=== PATIENT | female | born 1950 | race Caucasian/White ===

== ENCOUNTER 2025-01-15 14:40 | Inpatient (IN) | payer MEDICARE, BC, SELFPAY ==
[2025-01-15 15:02] VITALS: BP 136/82; PULSE 100; RESP 18; TEMP 36.9; O2SAT 99
[2025-01-15 15:03] VITALS: BMI 29.2
--- NOTE | 2025-01-15 15:13 | XR_ITS ---
Examination: CT abdomen and pelvis without contrast. Coronal 3-D reconstructions. Sagittal 2-D reconstructions. Date and time of exam:January 15, 2025 1528 hours INDICATIONS: Abdominal pain beginning one week ago CTDI: vol (mGy): 11.5 DLP: (mGycm): 617 Technique: Axial images of the abdomen have been obtained, 3 mm slice thickness Intravenous contrast material has not been administered. Low dose protocols were performed. One or more of the following dose reduction techniques were used; automated exposure control, adjustment of the mA and/or KV according to patient size, use of iterative reconstruction technique. Findings: No focal liver or splenic lesions Normal thickening involving the stomach with perigastric inflammatory change coronal image 37 No gallstones No pancreatic or adrenal mass No renal or ureteral calculi, no hydronephrosis 4 mm fat-containing umbilical hernia Normal appendix No bowel obstruction No diverticulitis Uterine calcified areas of fibroid degeneration No adnexal mass Intact urinary bladder Advanced degenerative disc disease L2-L3, L4-L5 Total right hip arthroplasty with satisfactory alignment IMPRESSION: Gastritis pattern
--- NOTE | 2025-01-15 15:15 | PD.EDRME ---
Rapid Medical Screening Exam [facility] Arrival date/time: 01/15/25 14:40 74-year-old female with a history of GI bleeds presents to the emergency room with a chief complaint of blood in the stool and abdominal pain. Patient was sent over by Dr. Rivas the environmental sciences professor for a CT scan and blood work. I have greeted and performed a focused initial assessment of this patient. A comprehensive ED assessment and evaluation of the patient, analysis of all test results, and completion of the medical decision making process will be conducted by additional ED providers. Chief Complaint: GI Bleed Vital signs: Vital Signs Temperature 98.5 F 01/15/25 15:02 Pulse Rate 100 01/15/25 15:02 Respiratory Rate 18 01/15/25 15:02 Blood Pressure 136/82 H 01/15/25 15:02 Pulse Oximetry (%) 99 01/15/25 15:02 Oxygen Delivery Method Room Air 01/15/25 15:02 Vital signs reviewed by provider: Yes
[2025-01-15 15:38] LABS: Basophils % (Auto) 1 % (0-2.5); Eosinophils # (Auto) 0.1 Thou/mm3 (0.0-0.5); Eosinophils % (Auto) 1 % (0-10); Hematocrit 43.6 % (36.0-46.0); Hemoglobin 14.8 g/dL (12.0-16.0); Immature Granulocytes % (Auto) 0 % (0-0); Immature Granulocytes Auto 0.02 Thou/mm3 (0.00-0.00); Lymphocytes # (Auto) 1.7 Thou/mm3 (1.0-4.8); Lymphocytes % (Auto) 23 % (10-50); Mean Corpuscular HGB Conc 33.9 g/dl (31.0-37.0); Mean Corpuscular Hemoglobin 31.4 pg (25.0-35.0); Mean Corpuscular Volume 92 fL (80-100); Monocytes # (Auto) 0.5 Thou/mm3 (0.0-0.8); Monocytes % (Auto) 7 % (0-12); Neutrophils # (Auto) 5.1 Thou/mm3 (1.8-7.7); Neutrophils % (Auto) 68 % (37-80); Nucleated Red Blood Cell % 0 /100 WBC (0); Platelet Count 242 Thou/mm3 (140-440); RDW Standard Deviation 43.2 fL (36.4-46.3); Red Blood Count 4.72 Miln/mm3 (4.00-5.20); White Blood Count 7.5 Thou/mm3 (3.6-11.0)
[2025-01-15 15:53] LABS: Partial Thromboplastin Time 24.9 Seconds (22.0-36.0); Prothrombin Time 10.8 Seconds (9.0-12.2)
[2025-01-15 16:00] LABS: Alanine Aminotransferase 10 U/L (10-49); Albumin, Serum 4.8 gm/dL (3.4-4.8); Albumin/Globulin Ratio 1.8 (1.2-2.2); Alkaline Phosphatase 70 U/L (46-116); Anion Gap 8 (7-16); Aspartate Amino Transferase 18 U/L (0-34); BUN/Creatinine Ratio 14 Ratio (12-20); Bilirubin,Total 1.6 mg/dL (0.3-1.2); Blood Urea Nitrogen 14 mg/dL (9-23); Calcium 9.6 mg/dL (8.3-10.6); Calcium (Corrected) 9.6 mg/dL (8.5-10.1); Carbon Dioxide 27.4 mMol/L (20.0-31.0); Chloride 108 mMol/L (98-107); Estimated Creatinine Clearance 48.9 mL/min (>60); Globulin 2.7 gm/dL (2.3-3.5); Glucose 105 mg/dL (74-106); Lipase 49 U/L (12-53); Osmolality,Calculated 285 (275-295); Potassium 4.8 mMol/L (3.4-5.1); Sodium 143 mMol/L (136-145); Total Protein 7.5 gm/dL (5.7-8.2); eGFR 59 See Note
[2025-01-15 16:04] LABS: Collection Type, Urine Clean Catch
[2025-01-15 16:22] LABS: Bilirubin,Urine Negative (Negative); Blood,Urine Negative (Negative); Clarity,Urine Clear (Clear/Hazy); Color,Urine Lt-Yellow (Lt Yel-Yel); Glucose, Urine Negative (Negative); Hyaline Casts,Urine < 1 /hpf (0-1); Ketones,Urine 1+ (Negative); Leukocyte Esterase,Urine Negative (Negative); Nitrite,Urine Negative (Negative); Protein,Urine Negative (Neg - Trace); RBC,Urine 1 /hpf (0-3); Specific Gravity,Urine 1.015 (1.001-1.035); Squamous Epithelial Cell,Urine 1 /hpf (0-5); Urobilinogen,Urine Negative mg/dL (0.0-1.0); WBC,Urine 2 /hpf (0-5)
[2025-01-15 18:16] VITALS: BP 131/87; PULSE 83; RESP 20; TEMP 36.8; O2SAT 97
--- NOTE | 2025-01-15 18:32 | EDNOTE_ITS ---
ED GI Bleed RME/HPI General Chief complaint: GI Bleed Stated complaint: BLOOD IN STOOL, SENT BY DR. RIVAS Time Seen by Provider: 01/15/25 18:33 Arrival date/time: 01/15/25 14:40 RME / HPI RME / HPI Narrative: 01/15/25 14:40 74-year-old female with a history of GI bleeds presents to the emergency room with a chief complaint of blood in the stool and abdominal pain. Patient was sent over by Dr. Rivas the child support investigator for a CT scan and blood work. I have greeted and performed a focused initial assessment of this patient. A comprehensive ED assessment and evaluation of the patient, analysis of all test results, and completion of the medical decision making process will be conducted by additional ED providers. Dr. Pena?s Main ED Evaluation: 74yo female presents to the ED for a chief compl aint of black stools x 6 days. Patient states she started having black stools on Sunday night. Patient states she saw Dr. Rivas, her GI specialist, today and was sent over here for evaluation. Patient endorses having RUQ pain where her previous ulcer was. Patient denies any N/V, lightheadedness, weakness, shortness of breath or any other associated symptoms. Patient does report having a history of GI bleeding last year and was admitted here for it. She denies being on any blood thinners, NSAIDs, or steroids. Denies any history of DM or HTN. Denies any tobacco or alcohol use. Denies any previous abdominal surgeries. Denies any recent medication changes. Related Data Home Medications ?Medication ?Instructions ?Recorded ?Confirmed omeprazole 40 mg capsule,delayed 40 mg PO BID 05/26/24 05/26/24 release Allergies Allergy/AdvReac Type Severity Reaction Status Date / Time codeine Allergy Redness of Verified 01/15/25 14:44 Skin Review of Systems Review of Systems Systems Reviewed: All systems reviewed, normal except as documented Past Medical History Past Medical History NEUROLOGIC: Negative Neurological Disorders or Seizures CARDIAC: Negative Cardiac Disorders or Congestive Heart Failure RESPIRATORY: Positive Asthma; Negative Chronic Obstructive Pulmonary Disease (COPD) GASTROINTESTINAL: Positive Gastrointestinal Disorders, Gastrointestinal Bleed and Ulcer GENITOURINARY: Negative Genitourinary Disorders or Renal Disease MUSCULOSKELETAL: Positive Musculoskeletal Disorders and Arthritis ENDOCRINE: Negative Endocrine Disorders, Diabetes Mellitus Type 1 or Diabetes Mellitus Type 2 HEMATOLOGIC: Negative Blood Disorders or Sickle Cell Disease OTHER HISTORY: Positive Blood Transfusions and Measles; Negative Autoimmune Disease, Blood Transfusion Reaction, Anesthesia Reactions or MRSA Surgical History SURGICAL: Positive Tonsillectomy and Joint Replacement Social History SMOKING STATUS: Never smoker ED Exam Narrative Physical exam: GENERAL APPEARANCE: AxOx4, generally well-appearing, no acute distress. HEENT: NC, AT. MMM. EOMI, clear conjunctiva, oropharynx clear. NECK: Supple without lymphadenopathy. No stiffness or restricted ROM. HEART: Normal rate and regular rhythm, normal S1/S1, no m/r/g LUNGS: CTAB, moving air well. No crackles or wheezes are heard. ABDOMEN: Soft, mild pain on palpation of the RUQ, nontender, nondistended. BACK: No midline C/T/L spine pain or deformity, No CVAT, no obvious deformity. EXTREMITIES: Without cyanosis, clubbing or edema. MUSCULOSKELETAL: FROM of all major joints, no chest tenderness NEUROLOGICAL: Grossly nonfocal. Alert and oriented, moving all 4 extremities. CN not formally tested but appear grossly intact. Skin: Warm and dry without any rash. Course Quality Measures none Orders Category Date Time Status CT abdomen pelvis wo con Stat Exams 01/15/25 15:13 Completed CBC Stat Lab 01/15/25 15:29 Completed CMP [Comprehensive Metabolic Panel] Stat Lab 01/15/25 15:29 Completed Lipase Stat Lab 01/15/25 15:29 Completed PT [Prothrombin Time with INR] Stat Lab 01/15/25 15:29 Completed PTT [Partial Thromboplastin Time] Stat Lab 01/15/25 15:29 Completed Type and Screen Stat Lab 01/15/25 15:29 Completed UA [Urinalysis] Stat Lab 01/15/25 16:00 Completed Urine Culture Stat Lab 01/15/25 16:00 Received Pantoprazole/Ns 80Mg IV Premix [Protonix/NS 80mg IV Med 01/15/25 18:39 Discontinued Premix] 80 mg in 100 ml IV X1 Pantoprazole/Ns 80Mg IV Premix [Protonix/NS 80mg IV Med 01/15/25 18:40 Active Premix] 80 mg in 100 ml IV X1 Vital Signs Vital signs: Vital Signs Temperature 98.5 F 01/15/25 15:02 Pulse Rate 100 01/15/25 15:02 Respiratory Rate 18 01/15/25 15:02 Blood Pressure 136/82 H 01/15/25 15:02 Pulse Oximetry (%) 99 01/15/25 15:02 Oxygen Delivery Method Room Air 01/15/25 15:02 GI Bleed MDM Narrative MDM Narrative:: Scribe Attestation: 01/15/25 Mari Vazquez am scribing for and in the presence of Dr. Pena. Patient data External records reviewed:: [facility] previous records (Per chart review, patient was admitted here on 01/29/24 for acute GI bleeding.) Clinical information provided by:: patient Social determinants that could affect healthcare access:: none Patient has the following chronic illnesses:: asthma, PMR How is presenting disease/condition affected by chronic disease/condition?: uneffected by Evaluation data The following diagnostics were reviewed and interpreted by me:: lab results and radiology exam(s) Lab and/or radiology exams considered but not ordered:: none Interpretation Summary: CBC is normal, PT and INR are normal, PTT is normal, CMP is normal, UA is unremarkable, according to my interpretation. [facility] Report Signed Patient: COLT GIBSON [facility]. Record#: [id number] Birthdate: 1950 Age/Sex: 74 / F Location: [facility] Attending Dr: Ordering Physician: Luis Armando Ayon Date of Service: 01/15/25 Procedure(s): CT abdomen pelvis wo con Accession Number(s): [id number] cc: Luis Armando Ayon; Javier Bartholomew MD~ Examination: CT abdomen and pelvis without contrast. Coronal 3-D reconstructions. Sagittal 2-D reconstructions. Date and time of exam:January 15, 2025 1528 hours INDICATIONS: Abdominal pain beginning one week ago CTDI: vol (mGy): 11.5 DLP: (mGycm): 617 Technique: Axial images of the abdomen have been obtained, 3 mm slice thickness Intravenous contrast material has not been administered. Low dose protocols were performed. One or more of the following dose reduction techniques were used; automated exposure control, adjustment of the mA and/or KV according to patient size, use of iterative reconstruction technique. Findings: No focal liver or splenic lesions Normal thickening involving the stomach with perigastric inflammatory change coronal image 37 No gallstones No pancreatic or adrenal mass No renal or ureteral calculi, no hydronephrosis 4 mm fat-containing umbilical hernia Normal appendix No bowel obstruction No diverticulitis Uterine calcified areas of fibroid degeneration No adnexal mass Intact urinary bladder Advanced degenerative disc disease L2-L3, L4-L5 Total right hip arthroplasty with satisfactory alignment IMPRESSION: Gastritis pattern Dictated By: Javier Bartholomew MD Signed By: <Electronically signed by Javier Bartholomew MD in OV> 01/15/25 1545 Medications / Prescriptions Medications or Prescriptions considered but not ordered:: none Medication administrations:: Medication Administration History Pantoprazole Sodium (Protonix/Ns 80mg Iv Premix) 80 mg in 100 mls @ 10 mls/hr IV X1 ONE Stop: 01/16/25 04:39 Discontinued Medications Pantoprazole Sodium (Protonix/Ns 80mg Iv Premix) 80 mg in 100 mls @ 400 mls/hr IV X1 ONE Stop: 01/15/25 18:53 see above Consultations Consultation(s) initiated? (list below): Yes Consultation #1 (Physician, Specialty, Details): Discussed case with Dr. Mares from Hospitalist service regarding admission. Discussed patients ED course, exam findings, labs, and radiology results. The Hospitalist agrees to accept the patient for admission. Time: 18:45 Diagnosis GI bleed differential diagnosis: hemorrhoids, Upper gastrointestinal hemorrhage, Lower gastrointestinal hemorrhage and melena Most likely diagnosis given after review of the tests above:: see clinical impression below Admission Indicated Admission indicated?: indicated Admission Request Was there a request for admission?: Yes Admission Attestation Admission request attestation: Discussed case with [] from Hospitalist service regarding admission. Discussed patients ED course, exam findings, labs, and radiology results. The Hospitalist [agrees,declines] to accept the patient for admission. Disposition Plan Disposition Plan: Admit Discharge Plan Plan Patient Disposition: Admit Acute Care w/in Hospital Prescriptions/Referrals Prescriptions/Med Rec: No Action omeprazole 40 mg Capsule,Delayed Release(Dr/Ec) 40 mg PO BID Referrals: No Primary/Family,Physician [Primary Care Provider] - In 1 week Problem List Clinical Impression: Acute GI bleeding Patient/Caregiver Discharge Instructions Print Language: Ecuadorean Stand Alone Forms: [facility] Award Info., Patient Portal Info Letter
[2025-01-15] MEDS: PANTOPRAZOLE/NS 80MG IV PREMIX 80 MG/100 ML BAG 400 MG IV (19:25)
[2025-01-15] MEDS: PANTOPRAZOLE/NS 80MG IV PREMIX 80 MG/100 ML BAG 10 MG IV (19:25)
[2025-01-15] MEDS: SODIUM CHLORIDE 0.9% 1000 ML 1,000 ML 75 ML IV (20:01)
[2025-01-15 20:02] VITALS: BP 129/63; PULSE 70; RESP 16; TEMP 36.8; O2SAT 95
--- NOTE | 2025-01-15 20:42 | PD.HHHP ---
Documentation for date of: 01/15/25 HPI - Hospitalist History of Present Illness History of Present Illness: Black stool History of present illness: A 74-year-old female presented to the ER with the chief complaint of black stool. The patient described about one week of black stool. Every bowel movement has been black since last Sunday. She also c/o mild right upper abdominal pain (pressure-like, located just below the rib cage, worsened this morning). Patient denied dizziness, vomiting blood, nausea, weakness, breathing difficulties, fever, cough, and loss of appetite. About one year ago, she was hospitalized for GI bleeding requiring two blood transfusions after starting aspirin, Tylenol, and an anti-inflammatory following right hip replacement surgery. At that time, an endoscopy revealed a bleeding ulcer treated by Dr. Rivas. Currently, she reports taking only a multivitamin (without iron) and PPI prescribed for her ulcer. She denies recent use of NSAIDs, blood thinners, or any new medications. She presented to the ER today due to concern about recurrent GI bleeding and for further evaluation. The patient has a history of GI bleed and right hip replacement. Current medications include PPI, Multivitamin. Social history includes no smoking, no alcohol use, and no recreational drug use. She is fully independent with her activities of daily living. She had tonsillectomy as a child. In the ER, vital signs recorded as temp 98.5 F, HR 100 bpm, RR 18, BP 136/82 mmHg. Physical exam revealed a soft abdomen with mild tenderness in the right upper quadrant. Lab revealed WBC 7.5, Hb 14.8, Plt 242, Na 143, K 4.8, Cl 108, BUN 14, Creatinine 1.0, [place] 105. CT abdomen demonstrated a gastritis pattern. GI was consulted. Admit for further evaluation and treatment. Review of Systems Review of Systems Narrative Review of Systems: A 14 point review of systems was assessed and negative except for that per HPI Past Medical History Past Medical History NEUROLOGIC: Negative Neurological Disorders or Seizures CARDIAC: Negative Cardiac Disorders or Congestive Heart Failure RESPIRATORY: Positive Asthma; Negative Chronic Obstructive Pulmonary Disease (COPD) GASTROINTESTINAL: Positive Gastrointestinal Disorders, Gastrointestinal Bleed and Ulcer GENITOURINARY: Negative Genitourinary Disorders or Renal Disease MUSCULOSKELETAL: Positive Musculoskeletal Disorders and Arthritis ENDOCRINE: Negative Endocrine Disorders, Diabetes Mellitus Type 1 or Diabetes Mellitus Type 2 HEMATOLOGIC: Negative Blood Disorders or Sickle Cell Disease OTHER HISTORY: Positive Blood Transfusions and Measles; Negative Autoimmune Disease, Blood Transfusion Reaction, Anesthesia Reactions or MRSA Surgical History SURGICAL: Positive Tonsillectomy and Joint Replacement Social History SMOKING STATUS: Never smoker Meds Home Medications and Allergies Home Medications ?Medication ?Instructions ?Recorded ?Confirmed ?Type omeprazole 40 mg capsule,delayed 40 mg PO BID 05/26/24 05/26/24 History release Allergies Allergy/AdvReac Type Severity Reaction Status Date / Time codeine Allergy Redness of Verified 01/15/25 14:44 Skin Exam Vital Signs Temp Pulse Resp BP Pulse Ox O2 Del Method 98.2 F 70 16 129/63 95 Room Air 01/15/25 20:02 01/15/25 20:02 01/15/25 20:02 01/15/25 20:02 01/15/25 20:02 01/15/25 20:02 Results - Hospitalist Labs Diagrams: 01/15/25 15:29 01/15/25 15:29 Labs: Short CBC 01/15/25 Range/Units 15:29 WBC 7.5 (3.6-11.0) Thou/mm3 Hgb 14.8 (12.0-16.0) g/dL Hct 43.6 (36.0-46.0) % Plt Count 242 (140-440) Thou/mm3 BMP 01/15/25 15:29 Sodium 143 Potassium 4.8 Chloride 108 H Carbon Dioxide 27.4 BUN 14 Creatinine 1.0 Glucose 105 Calcium 9.6 Liver Function 01/15/25 Range/Units 15:29 Total Bilirubin 1.6 H (0.3-1.2) mg/dL AST 18 (0-34) U/L ALT 10 (10-49) U/L Alkaline Phosphatase 70 (46-116) U/L Albumin 4.8 (3.4-4.8) gm/dL Urine 01/15/25 Range/Units 16:00 Urine Color Lt-Yellow (Lt Yel-Yel) Urine Clarity Clear (Clear/Hazy) Urine pH 6.0 (5.0-7.0) Ur Specific [place] 1.015 (1.001-1.035) Urine Protein Negative (Neg - Trace) Urine Glucose (UA) Negative (Negative) Assessment & Plan -Hospitalist Additional Assessment #Upper GI Bleed Assessment: Melena x1 week, prior history of bleeding gastric ulcer, mild RUQ tenderness, stable vital signs, Hb 14.8 (no acute drop), CT abdomen shows gastritis pattern, no recent NSAID or anticoagulant use Plan: - NPO, start IV PPI - GI consultation already initiated; plan EGD tmr - Monitor Hb/Hct - Type and screen - Maintain hemodynamic monitoring; if hypotension, initiate IV fluids and consider transfusion if Hb <7 g/dL or symptomatic Quality Measures Quality Measures none Advance care planning discussed with:: patient
[2025-01-15 22:10] VITALS: BP 124/64; PULSE 61; RESP 17; TEMP 36.8; O2SAT 95
--- NOTE | 2025-01-15 22:35 | ESCONSULT_ITS ---
HPI Data of Consult Requesting Physician: Sergio Mares MD Primary Care Provider: Physician No Primary/Family Consult Narrative cc:: cc: Sergio Mares MD Meds Home Medications and Allergies Home Medications ?Medication ?Instructions ?Recorded ?Confirmed ?Type omeprazole 40 mg capsule,delayed 40 mg PO BID 05/26/24 05/26/24 History release Allergies Allergy/AdvReac Type Severity Reaction Status Date / Time codeine Allergy Redness of Verified 01/15/25 14:44 Skin Exam Vital Signs Temp Pulse Resp BP Pulse Ox O2 Del Method 98.2 F 61 17 124/64 95 Room Air 01/15/25 22:10 01/15/25 22:10 01/15/25 22:10 01/15/25 22:10 01/15/25 22:10 01/15/25 22:10 Results Labs 01/15/25 15:29 01/15/25 15:29 Labs: Short CBC 01/15/25 Range/Units 15:29 WBC 7.5 (3.6-11.0) Thou/mm3 Hgb 14.8 (12.0-16.0) g/dL Hct 43.6 (36.0-46.0) % Plt Count 242 (140-440) Thou/mm3 BMP 01/15/25 15:29 Sodium 143 Potassium 4.8 Chloride 108 H Carbon Dioxide 27.4 BUN 14 Creatinine 1.0 Glucose 105 Calcium 9.6 Liver Function 01/15/25 Range/Units 15:29 Total Bilirubin 1.6 H (0.3-1.2) mg/dL AST 18 (0-34) U/L ALT 10 (10-49) U/L Alkaline Phosphatase 70 (46-116) U/L Albumin 4.8 (3.4-4.8) gm/dL Urine 01/15/25 Range/Units 16:00 Urine Color Lt-Yellow (Lt Yel-Yel) Urine Clarity Clear (Clear/Hazy) Urine pH 6.0 (5.0-7.0) Ur Specific [place] 1.015 (1.001-1.035) Urine Protein Negative (Neg - Trace) Urine Glucose (UA) Negative (Negative)
[2025-01-15 23:22] VITALS: BMI 30.9
[2025-01-16] VITALS (17 sets, daily range): BP systolic 114–170; BP diastolic 61–85; PULSE 63–86; RESP 12–18; TEMP 35.9–37.1; O2SAT 93–99
[2025-01-16 05:47] LABS: Basophils % (Auto) 1 % (0-2.5); Eosinophils # (Auto) 0.1 Thou/mm3 (0.0-0.5); Eosinophils % (Auto) 3 % (0-10); Hematocrit 38.4 % (36.0-46.0); Immature Granulocytes % (Auto) 0 % (0-0); Lymphocytes # (Auto) 0.9 Thou/mm3 (1.0-4.8); Lymphocytes % (Auto) 22 % (10-50); Mean Corpuscular HGB Conc 33.9 g/dl (31.0-37.0); Mean Corpuscular Hemoglobin 31.6 pg (25.0-35.0); Mean Corpuscular Volume 93 fL (80-100); Monocytes # (Auto) 0.5 Thou/mm3 (0.0-0.8); Monocytes % (Auto) 12 % (0-12); Neutrophils # (Auto) 2.6 Thou/mm3 (1.8-7.7); Neutrophils % (Auto) 63 % (37-80); Nucleated Red Blood Cell % 0 /100 WBC (0); Platelet Count 183 Thou/mm3 (140-440); RDW Standard Deviation 43.4 fL (36.4-46.3); Red Blood Count 4.11 Miln/mm3 (4.00-5.20); White Blood Count 4.2 Thou/mm3 (3.6-11.0)
[2025-01-16 06:01] LABS: Anion Gap 7 (7-16); BUN/Creatinine Ratio 16 Ratio (12-20); Blood Urea Nitrogen 14 mg/dL (9-23); Calcium 8.6 mg/dL (8.3-10.6); Carbon Dioxide 29.1 mMol/L (20.0-31.0); Chloride 110 mMol/L (98-107); Creatinine (Component) 0.9 mg/dL (0.6-1.3); Estimated Creatinine Clearance 55.9 mL/min (>60); Glucose 86 mg/dL (74-106); Osmolality,Calculated 290 (275-295); Potassium 3.8 mMol/L (3.4-5.1); Sodium 146 mMol/L (136-145); eGFR > 60 See Note
[2025-01-16] MEDS: PANTOPRAZOLE INJ 40 MG VIAL IVP (08:35)
--- NOTE | 2025-01-16 09:17 | PC.SS ---
Follow up note: Endoscopy today. Possible Colonoscopy. NPO. Dr. Rivas is consulting.
--- NOTE | 2025-01-16 14:55 | PC.SS ---
SS met with patient regarding her d/c plan. Pt is alert/oriented. Pt was admitted for Blood in Stool, Sent By Dr. Rivas. Pt confirmed demographic and contact information is correct on facesheet. Pt resides with. Pt ambulates independently without assistance or DME. Pt is ok with all ADLs. Patient?s pharmacy of choice is [facility] on [address] in [place]. Pt named her , Raj Burger medical decision maker if she is unable. SS provided pt with verbal d/c options for d/c to home or SNF. Patient?s choice is to return home upon d/c. Pt does not have an advance directive, SS offered, and pt declined. Pt states not diabetic and is not on dialysis. Pt followed up with PCP last year. will provide transportation. D/C plan: Return home Next of Kin: Raj Burger phone# PCP: Ronak Downs from [facility] Address: Correct on facesheet
--- NOTE | 2025-01-16 16:05 | PD.HHPROG ---
Documentation for date of: 01/16/25 Subjective - Hospitalist Subjective Interval history: Patient is a 74 years old female with past medical history of asthma, GI bleed who presented to the ED with complaint of 1 week of black stool. She was admitted overnight for management of upper GI bleeding. At bedside today, patient is states she is feeling well and does not have any new complaints. She has been n.p.o. EGD with GI, likely this evening. Denies any abdominal pain, nausea or vomiting. Review of Systems Review of Systems Systems Reviewed: All systems reviewed, normal except as documented Exam Vital Signs Temp Pulse Resp BP Pulse Ox O2 Del Method O2 Flow Rate 97.0 F 73 15 119/61 94 L Room Air 3 01/16/25 20:00 01/16/25 20:00 01/16/25 20:00 01/16/25 20:00 01/16/25 20:00 01/16/25 20:00 01/16/25 17:45 Narrative General: Patient appears comfortable, alert and oriented, cooperative, able to answer question and follow commands appropriately HEENT: EOMI, PERRLA, no icterus or pallor Chest: Clear to auscultate bilaterally, without wheeze or crackles CVS: RRR, S1 and S2 heard without murmurs Abdomen: Soft, mildly distended, no tenderness, bowel sounds present Neuro: Alert and oriented x 4, moving all his limbs, no focal neurological deficit, cranial nerves grossly intact Extremity/skin: No pedal edema, no rash Psych: Appropriate mood and behavior Objective - Hospitalist Labs Diagram: 01/16/25 04:38 01/16/25 04:38 Assessment & Plan Assessment: #Upper GI Bleed Assessment: Melena x1 week, prior history of bleeding gastric ulcer, mild RUQ tenderness, stable vital signs, Hb 14.8 (no acute drop), CT abdomen shows gastritis pattern, no recent NSAID or anticoagulant use Plan: - Continues to be on IV PPI - Gastroenterology following, plan for EGD this evening - Hemoglobin stable at 13.0, we will continue to monitor with daily labs - Type and screen - N.p.o. - Continues to be on gentle IV hydration, normal saline at 75 cc/h CODE STATUS: Full code Diet: N.p.o. DVT prophylaxis: SCDs, chemical prophylaxis contraindicated in setting of GI bleed Disposition: Med telemetry for management of upper GI bleeding Alycia Wayne MD Time Spent with Patient Time: Total time spent is greater than 50% in coordination of care (as documented) at patient's floor/unit and/or counseling patient: Time with patient: Greater than 35 minutes Reason for Continued Stay Reason for continued stay: further monitoring Quality Measures Quality Measures none Advance care planning discussed with:: patient
[2025-01-16] MEDS: SODIUM CHLORIDE 0.9% 500 ML 100 ML 20 ML IV (17:25)
--- NOTE | 2025-01-16 19:24 | PC.NURSE ---
Spoke with dr almanzar and dr whitlock at 1920 and both providers agree to discharge patient. Orders placed.
--- NOTE | 2025-01-17 17:14 | PD.HHDS ---
Planned Discharge Date 01/17/25 DS: Providers Provider Date of admission: 01/15/25 19:23 Primary care physician: Physician No Primary/Family Admitting Provider: Sergio Mares MD Attending Provider on Admission: Alycia Wayne MD Consults: 01/15/25 19:24 Consult to Gastroenterology Routine Comment: Consulting Provider: El Ford Attending Provider on DC: Alycia Wayne MD Discharging Provider: Alycia Wayne MD Diagnosis Problem List Completed Was Problem List Reviewed/Reconciled?: Yes Hospital Course - Hospitalist Hospital Course Hospital course: Patient is a 74 years old female with past medical history of asthma, GI bleed who presented to the ED with complaint of 1 week of black stool. She also c/o mild right upper abdominal pain (pressure-like, located just below the rib cage, worsened this morning). Patient denied dizziness, vomiting blood, nausea, weakness, breathing difficulties, fever, cough, and loss of appetite. About one year ago, she was hospitalized for GI bleeding requiring two blood transfusions after starting aspirin, Tylenol, and an anti-inflammatory following right hip replacement surgery. At that time, an endoscopy revealed a bleeding ulcer treated by Dr. Ford. Currently, she reports taking only a multivitamin (without iron) and PPI prescribed for her ulcer. She denies recent use of NSAIDs, blood thinners, or any new medications. She presented to the ER on 01/15/2025 due to concern about recurrent GI bleeding and for further evaluation. Patient underwent EGD with gastroenterology on 01/16/2025 was found to have esophagitis, erythematous mucosa in gastric antrum, erythematous duodenopathy but no active bleeding. Patient was then discharged overnight, she was not evaluated today. She was recommended to follow-up with gastroenterology for outpatient colonoscopy, avoid NSAIDs and have peptic ulcer diet. She is recommended to follow-up with PCP and gastroenterology in 1 to 2 weeks of discharge. #Upper GI bleeding Alycia Wayne MD Time Spent with Patient Time attestation: Total time spent providing and/or coordinating discharge services: Time spent: Less than 30 minutes Discharge Results Labs Diagrams: 01/16/25 04:38 01/16/25 04:38 Exam Vital Signs Temp Pulse Resp BP Pulse Ox O2 Del Method O2 Flow Rate 97.0 F 73 15 119/61 94 L Room Air 3 01/16/25 20:00 01/16/25 20:00 01/16/25 20:00 01/16/25 20:00 01/16/25 20:00 01/16/25 20:00 01/16/25 17:45 Narrative Unable to examine, patient left overnight Discharge Plan Plan Patient Disposition: HOME (Self Care) Care Plan Goals: follow up with Dr. Ford in one week. Follow peptic ulcer disease diet. Prescriptions/Referrals Prescriptions/Med Rec: No Action omeprazole 40 mg Capsule,Delayed Release(Dr/Ec) 40 mg PO .2 X AWEEK Patient Comments: SUNDAY AND SUNDAY Multivitamin 50 Plus 1 tab PO DAILY Referrals: No Primary/Family,Physician [Primary Care Provider] - Patient/Caregiver Discharge Instructions Discharge Activity: activity as tolerated Education Materials: Duodenitis, Upper GI Endoscopy, Understanding Gastritis Print Language: Citizen Of [place] Activity Restrictions/Additional Instructions: FOLLOW UP WITH DR FORD ON OUT PATIENT BASIS. CALL HIS OFFICE AT [phone] Stand Alone Forms: Parisa Award Info., Patient Portal Info Letter Discharge Order Discharge Orders: Discharge (Routine); Ordered 01/16/25 Ordered By: El Ford Quality Discharge Quality Measures none
== END 2025-01-16 20:15 | disposition home or self-care (01) | DRG 370 ==
LOC: SERX 18:56 → SERHOLD 19:44 → S3NX 23:10
PROVIDERS: Nurse Practitioner Family; Specialist; Admitting Provider Internal Medicine; Emergency Provider Emergency Medicine; Visit Provider Student in an Organized Health Care Education/Training Program
PROC: 0DJ08ZZ Inspection of Upper Intestinal Tract, Via Natural or Artificial Opening Endoscopic (ICD-10-PCS; CPT 43239; principal; 2025-01-16 17:00)
DX: K20.91 Esophagitis, unspecified with bleeding (principal); Z96.641 Presence of right artificial hip joint; J45.909 Unspecified asthma, uncomplicated; K31.89 Other diseases of stomach and duodenum
CPT/HCPCS: 36415; 74176; 80048; 80053; 81001; 83690; 84295; 85025; 85610; 85730; 86850; 86900; 86901; 87086; 93225; J1200; J2250; J2470; J3010; J3490; J7030; J7040; A9270

== ENCOUNTER → 2025-08-18 | Outpatient (CLI) | payer MEDICARE, BC, SELFPAY ==
--- NOTE | 2025-08-18 11:00 | XR_ITS ---
Examination: Screening digital mammography, bilateral Computer aided detection 3-D breast Tomosynthesis, bilateral Date and time of exam: 925, 11:12 a.m. Comparisons: Not available. If prior mammograms can be obtained recommend comparison with today's exam. Indications: Screening Technique: Nonmagnified MLO, CC views of the breasts to been obtained, reconstructed from 3-D Tomosynthesis images. R2 computer aided detection program utilized for evaluation of suspicious masses and/or abnormal calcifications. 3-D Tomosynthesis images obtained. Technologist: Findings: The breasts are heterogeneously dense, which may obscure small masses. No evidence of abnormal masses or suspicious calcifications. Impression: BI-RADS category 1: Negative findings (within normal) Recommend 1 year follow-up mammogram
== END | disposition home or self-care (01) ==
LOC: CDIM 10:44
PROVIDERS: Referring Provider Internal Medicine; Visit Provider Internal Medicine
DX: Z12.31 Encounter for screening mammogram for malignant neoplasm of breast (principal); R92.313 Mammographic fatty tissue density, bilateral breasts
CPT/HCPCS: 77063; 77067